=== PATIENT | female | born 1955 | race Caucasian/White ===

== ENCOUNTER 2016-08-27 10:06 | Emergency (ER) | payer BC ==
[~2016-08-27] VITALS: Ht 162.6 cm; Wt 99.0 kg
[~2016-08-27 10:06] MED LIST: ACET325T40 PO; BACTDS PO; CEPH-443 PO; LACT1CAP57 PO; LOSA1TAB19 PO; METO-429 PO
[2016-08-27 10:19] VITALS: Ht 162.6 cm; Wt 99.0 kg
--- NOTE | 2016-08-27 12:30 | RADRPT ---
PROCEDURE: Right upper extremity venous ultrasound CLINICAL INDICATION: Right arm pain and swelling, deep venous thrombosis TECHNIQUE: Warner scale, color doppler, spectral doppler ultrasound imaging of the venous system of the right upper extremity. Augmentation maneuvers were utilized. COMPARISON: 02/07/2016 FINDINGS: RIGHT: Internal jugular vein: Patent. Subclavian vein: Patent. Axillary vein: Patent. Brachial vein: Patent. Basilic vein: Patent. Cephalic vein: Patent. Radial vein: Patent. Ulnar vein: Patent. IMPRESSION: No evidence of a deep vein thrombosis involving the right upper extremity. RPTAT: AADD .Bill Roberts MD, MD Date Time Electronically viewed and signed by .Bill Roberts MD, MD on 08/27/2016 12:30 .B/
[2016-08-27] MEDS ORDERED: CLIN-73 PO (12:43)
--- NOTE | 2016-08-27 12:48 | ERD ---
ER Documentation Chief Complaint Date/Time DATE: 08/27/16 TIME: 12:44 Chief Complaint pt bib self with c/o right arm pain and swelling hx right mastectomy 2004 HPI Patient is a 60-year-old female who presents with swelling of her right upper extremity that began yesterday. She has a history of cellulitis in this arm but she also has a history of DVT in his arm. She has no chest pain or shortness of breath. She has no pain. He states he took Tylenol earlier and it resolved her pain which was minimal to begin with. She denies any trauma. Denies fever. Denies any numbness or tingling. ROS All systems reviewed and are negative except as per history of present illness. Medications Home Meds Active Scripts Clindamycin Hcl* (Clindamycin Hcl*) 300 Mg Capsule, 300 MG PO TID for 10 Days, CAP Prov:CYN JAMES PA-C 08/27/16 Cephalexin* (Keflex*) 500 Mg Capsule, 500 MG PO Q6, #40 CAP Prov:MARGIE HATFIELD MD 02/07/16 Sulfamethoxazole-Trimethoprim* (Bactrim* DS) 800-160 Mg Tab, 1 TAB PO BID for 10 Days, TAB Prov:MARGIE HATFIELD MD 02/07/16 Sulfamethoxazole-Trimethoprim* (Bactrim* DS) 1 Tab Tab, 1 TAB PO BID, #22 TAB Prov:MARCE SHERMAN MD 06/04/15 Lactobacillus Rhamnosus* (Culturelle*) 1 Cap Cap, 1 CAP PO BID, #30 Prov:MARCE SHERMAN MD 06/04/15 Acetaminophen (MAPAP) 325 Mg Tab, 650 MG PO Q6H Y for PAIN LEVEL 1-3 OR FEVER, # 1 Prov:MARCE SHERMAN MD 06/04/15 Reported Medications Metoprolol Tartrate* (Lopressor*) 50 Mg Tab, 50 MG PO DAILY, TAB 06/02/15 Losartan-Hydrochlorothiazide (Losartan-HCTZ) 50-12.5 Mg Tab, 1 TAB PO DAILY, TAB 06/02/15 Allergies Allergies: Coded Allergies: No Known Allergy (Unverified , 02/07/16) PMhx/Soc History of Surgery: Yes (R mastectomy w/ lymph node dissection/reconstruction, ) Anesthesia Reaction: No Hx Neurological Disorder: No Hx Respiratory Disorders: No Hx Cardiac Disorders: Yes (htn) Hx Psychiatric Problems: No Hx Miscellaneous Medical Probl: Yes (R arm cellulitis, breast CA, Htn) Hx Alcohol Use: No Hx Substance Use: No Hx Tobacco Use: No FmHx Family History: No diabetes Physical Exam Vitals Vital Signs Date Time Temp Pulse Resp B/P Pulse Ox O2 Delivery O2 Flow Rate FiO2 08/27/16 10:19 98.3 69 16 180/91 99 Physical Exam General: well developed, well nourished, alert, nontoxic, no distress Head: normocephalic, atraumatic Neck: Supple, nontender, no lymphadenopathy, no midline tenderness Respiratory: Clear to auscaultation bilaterally, speaks in full sentences, no use of accesory muscles or labored breathing, no rales, ronchi, or wheezing Cardiovascular: RRR, No murmurs Extremities: Right upper extremity is edematous mostly in the humeral area, sensation to light touch is intact, mild warmth to palpation, mild erythema, no induration, full range of motion in hand, wrist, elbow, and shoulders, no bony abnormalities, nontender to palpation throughout Procedures/MDM Patient is a nondiabetic 60-year-old female who presents with right upper extremity swelling. Patient's blood pressure was elevated (>120/80) but appears stable without evidence of hypertension emergency or urgency. The patient was counseled about the risks of hypertension and urged to pursue outpatient monitoring and therapy within a week with their primary care physician. Otherwise vital signs are within normal limits and she is afebrile and not tachycardic. She has no chest pain or shortness of breath. She has had cellulitis in his right upper extremity which has responded well to outpatient antibiotics but she has also had DVT in his right upper extremity and therefore I ordered ultrasound of the right upper extremity which was negative for DVT at this time. Patient was discharged with clindamycin and copies of the reports she can follow with primary care. Recommended this patient follow up with her primary care doctor within 48 hours or return to the emergency room for any worsening of symptoms. However this time I do believe there is suitable for outpatient management. I answered all their questions and they agreed with the plan and were discharged home. Departure Diagnosis: Primary Impression: Cellulitis Condition: Stable Patient Instructions: Cellulitis Additional Instructions: Call your primary care doctor TOMORROW for an appointment during the next 1-2 days.See the doctor sooner or return here if your condition worsens before your appointment time. CYN JAMES PA-C Aug 27, 2016 12:48
[2016-08-27 13:40] VITALS: BP 172/88; PULSE 77; RESP 16; TEMP 98.3
== END 2016-08-27 13:40 | disposition home or self-care (01) ==
LOC: FTE 10:06
DX: L03.113 Cellulitis of right upper limb (principal); I10 Essential (primary) hypertension; Z85.3 Personal history of malignant neoplasm of breast
CPT/HCPCS: 93971

== ENCOUNTER 2017-01-08 11:39 | Emergency (ER) | payer BC ==
[~2017-01-08] VITALS: Ht 154.9 cm; Wt 88.0 kg
[~2017-01-08 11:39] MED LIST changes: +CLIN-73 PO
[2017-01-08 11:41] VITALS: Ht 154.9 cm; Wt 88.0 kg
--- NOTE | 2017-01-08 12:38 | RADRPT ---
PROCEDURE: Right upper extremity venous duplex ultrasound. CLINICAL INDICATION: Right arm swelling and pain. TECHNIQUE: Right upper extremity venous duplex sonography was performed. COMPARISON: 08/27/2016 FINDINGS: The right internal jugular, subclavian, axillary, brachial, cephalic, basilic, antecubital, radial a nd ulnar veins showed no evidence for thrombus. These veins demonstrate normal color and Doppler wa veforms. IMPRESSION: No evidence for thrombus within the right upper extremity. RPTAT: EE .Vilma Lizama MD, Date Time Electronically viewed and signed by .Vilma Lizama MD, on 01/08/2017 12:37 .M/
[2017-01-08] MEDS ORDERED: BEN25 PO (12:46)
[2017-01-08] MEDS ORDERED: PRED20TA PO (12:46)
--- NOTE | 2017-01-08 12:52 | ERD ---
ER Documentation Chief Complaint Date/Time DATE: 01/08/17 TIME: 12:50 Chief Complaint R arm rash since yesterday. No fever. HPI Patient is a 61-year-old female who presents with a itchy rash on her right upper extremity that she has had since today. She denies any swelling of her lips or tongue. Denies any difficulty breathing. Denies any new soaps foods or irritants that she can think of. She has not taken any medications for this yet. She states that her right arm is swollen. She denies any chest pain or shortness of breath. ROS All systems reviewed and are negative except as per history of present illness. Medications Home Meds Active Scripts Prednisone* (Prednisone*) 20 Mg Tab, 40 MG PO DAILY for 5 Days, TAB Prov:[place] JAMES PA-C 01/08/17 Diphenhydramine Hcl* (Benadryl*) 25 Mg Cap, 25 MG PO Q6, #30 CAP Prov:CYN JAMES PA-C 01/08/17 Clindamycin Hcl* (Clindamycin Hcl*) 300 Mg Capsule, 300 MG PO TID for 10 Days, CAP Prov:CYN JAMES PA-C 08/27/16 Cephalexin* (Keflex*) 500 Mg Capsule, 500 MG PO Q6, #40 CAP Prov:MARGIE HATFIELD MD 02/07/16 Sulfamethoxazole-Trimethoprim* (Bactrim* DS) 800-160 Mg Tab, 1 TAB PO BID for 10 Days, TAB Prov:MARGIE HATFIELD MD 02/07/16 Sulfamethoxazole-Trimethoprim* (Bactrim* DS) 1 Tab Tab, 1 TAB PO BID, #22 TAB Prov:MARCE SHERMAN MD 06/04/15 Lactobacillus Rhamnosus* (Culturelle*) 1 Cap Cap, 1 CAP PO BID, #30 Prov:MARCE SHERMAN MD 06/04/15 Acetaminophen (MAPAP) 325 Mg Tab, 650 MG PO Q6H Y for PAIN LEVEL 1-3 OR FEVER, # 1 Prov:MARCE SHERMAN MD 06/04/15 Reported Medications Metoprolol Tartrate* (Lopressor*) 50 Mg Tab, 50 MG PO DAILY, TAB 06/02/15 Losartan-Hydrochlorothiazide (Losartan-HCTZ) 50-12.5 Mg Tab, 1 TAB PO DAILY, TAB 06/02/15 Allergies Allergies: Coded Allergies: No Known Allergy (Unverified , 02/07/16) PMhx/Soc History of Surgery: Yes (R mastectomy w/ lymph node dissection/reconstruction, ) Anesthesia Reaction: No Hx Neurological Disorder: No Hx Respiratory Disorders: No Hx Cardiac Disorders: Yes (htn) Hx Psychiatric Problems: No Hx Miscellaneous Medical Probl: Yes (R arm cellulitis, breast CA, Htn) Hx Alcohol Use: No Hx Substance Use: No Hx Tobacco Use: No Smoking Status: Never smoker FmHx Family History: No diabetes Physical Exam Vitals Vital Signs Date Time Temp Pulse Resp B/P Pulse Ox O2 Delivery O2 Flow Rate FiO2 01/08/17 11:41 98.8 87 14 131/60 97 Physical Exam Const: [] Head: Atraumatic Eyes: Normal Conjunctiva ENT: Normal External Ears, Nose and Mouth. Neck: Full range of motion..~ No meningismus. Resp: Clear to auscultation bilaterally Cardio: Regular rate and rhythm, no murmurs Abd: Soft, non tender, non distended. Normal bowel sounds Skin: Right upper extremity is swollen throughout with a macular papular hive- like rash Procedures/MDM Patient presents with a right upper extremity rash that does appear to be like allergic in nature however given how swollen her right upper extremity is I did order an ultrasound of the right upper extremity and there is no evidence of DVT. Therefore she is discharged with prednisone and Benadryl Recommended this patient follow up with her primary care doctor within 48 hours or return to the emergency room for any worsening of symptoms. However this time I do believe there is suitable for outpatient management. I answered all their questions and they agreed with the plan and were discharged home. Departure Diagnosis: Primary Impression: Rash Condition: Stable Patient Instructions: Self-Care for Skin Rashes Additional Instructions: Llame al doctor MAANA y francois corrine MOMO PARA DENTRO DE 1-2 MARCELO.Dgale a la secretaria que nosotros le instruimos hacer esta momo.Avise o llame si etienne condicin se empeora antes de la momo. Regresa aqui si peor o no mejor. CYN JAMES PA-C Jan 08, 2017 12:52
== END 2017-01-08 13:23 | disposition home or self-care (01) ==
LOC: FTE 11:39
DX: R21 Rash and other nonspecific skin eruption (principal); I10 Essential (primary) hypertension; Z85.3 Personal history of malignant neoplasm of breast
CPT/HCPCS: 93971

== ENCOUNTER 2018-01-16 18:38 | Inpatient (IN) | END 2018-01-22 10:58 | disposition home health service (06) | DRG 872 ==

== ENCOUNTER 2018-10-30 21:56 | Emergency (ER) | payer BC ==
[~2018-10-30] VITALS: Ht 157.5 cm; Wt 93.0 kg
[~2018-10-30 21:56] MED LIST changes: -ACET325T40 PO; -BACTDS PO; -CEPH-443 PO; -CLIN-73 PO; -LACT1CAP57 PO; -LOSA1TAB19 PO; +LOSA1TAB22 PO; -METO-429 PO
[2018-10-30 21:59] VITALS: Ht 157.5 cm; Wt 93.0 kg
[2018-10-31] MEDS ORDERED: DIPHTH/TET/ACEL PERTUSS (ADULT) 0.5 ML VIAL IM* ONE (02:00)
[2018-10-31] MEDS ORDERED: CIPR750T3 PO (02:59)
--- NOTE | 2018-10-31 03:05 | ERD ---
ER Documentation Chief Complaint Chief Complaint STEPPED ON NAIL, RIGHT FOOT, TODAY; HX OF LYPHMECTOMY HPI This is a 63-year-old female with history of breast cancer and cellulitis presents to the ED after stepping on a nail earlier today. Patient states she was wearing slippers when she accidentally stepped into a curved nail. Patient was able to remove the nail sustained a small puncture wound to her right lateral plantar foot. She immediately cleaned this afterwards and came here for further evaluation. She denies any fevers or chills. Denies any numbness, ti ngling or focal weakness. No other complaints. ROS All systems reviewed and are negative except as per history of present illness. Medications Home Meds Active Scripts Ciprofloxacin Hcl* (Ciprofloxacin Hcl*) 750 Mg Tablet, 750 MG PO BID, #14 TAB Prov:ABDULKADIR BENJAMIN PA-C 10/31/18 Losartan-Hydrochlorothiazide (Losartan-HCTZ) 50-12.5 Mg Tab, 1 TAB PO DAILY for 30 Days, #30 TAB 3 Refills Prov:DALLAS MARTINEZ MD 01/21/18 Allergies Allergies: Coded Allergies: vancomycin (Verified Allergy, Severe, SOB, Back pain, pounding in the ear, 01/17/18) Penicillins (Verified Allergy, Intermediate, 01/16/18) Pork/Porcine Containing Products (Verified Allergy, Unknown, 01/16/18) shrimp (Verified Allergy, Unknown, 01/16/18) PMhx/Soc History of Surgery: Yes (right mastectomy 2004) Anesthesia Reaction: No Hx Neurological Disorder: No Hx Respiratory Disorders: Yes Hx Cardiac Disorders: Yes (htn) Hx Psychiatric Problems: No Hx Miscellaneous Medical Probl: Yes (hx of breast CA) Hx Alcohol Use: No Hx Substance Use: No Hx Tobacco Use: No Physical Exam Vitals Vital Signs Date Temp Pulse Resp B/P (MAP) Pulse Ox O2 O2 Flow FiO2 Time Delivery Rate 10/30/18 96.3 69 19 188/88 99 21:59 (121) Physical Exam Const: No acute distress Head: Atraumatic Eyes: Normal Conjunctiva ENT: Normal External Ears, Nose and Mouth. Neck: Full range of motion. No meningismus. Resp: Clear to auscultation bilaterally Cardio: Regular rate and rhythm, no murmurs Skin: No petechiae or rashes Ext: + Small puncture wound to the right lateral plantar foot. No surrounding erythema. No purulent drainage. No crepitus. Mild soft tissue swelling of the right lateral ankle. Full range of motion of the right foot. Sensation and motor grossly intact. DP/PT pulses intact. Cap refill less than 2 seconds. Left lower extremity normal. Neur: Awake and alert Psych: Normal Mood and Affect Results 24 hrs Current Medications Medications Dose Sig/Nani Start Time Status Last (Trade) Ordered Route PRN Stop Time Admin Dose Reason Admin Diphtheria/ 0.5 ml ONCE ONCE 10/31/18 DC 10/31/18 Tetanus/Acell IM* 02:00 02:06 Pertussis 10/31/18 02:01 (Adacel) Procedures/MDM LABS & DIAGNOSTIC IMAGING: PROCEDURE: XR right foot 3 views. CLINICAL INDICATION: Stepped on nail with foot pain and concern for retained foreign body. TECHNIQUE: Frontal, lateral and oblique views of the right foot were performed. COMPARISON: None available. FINDINGS: Marker placed indicating the region of the lateral plantar heel. Mild diffuse bony demineralization. No evidence of acute fracture/malalignment. No joint effusion identified. Moderate plantar calcaneal enthesiophyte. Mild soft tissue edema about the ankle. No identifiable retained radiopaque foreign body. Few scattered tiny calcified venous phleboliths. IMPRESSION: 1. No evidence of acute fracture/malalignment. 2. No identifiable retained radiopaque foreign body. 3. Moderate heel spur. 4. Mild soft tissue edema about the ankle. PROCEDURES: Tetanus updated. MEDICAL DECISION MAKING: This is a 63-year-old female with history of breast cancer who presents status post stepping on a nail. Patient irrigated the wound prior to coming here. Tetanus was updated. An x-ray was obtained to rule out retained foreign body which was negative as above. Given her history of cancer, will treat prophylactically with antibiotics. Patient given Rx Cipro. I low suspicion for tenosynovitis, osteomyelitis, necrotizing fasciitis, abscess, cellulitis. She was told to follow-up in 2 days for wound recheck. Strict return precautions discussed. PRESCRIPTIONS: Cipro SPECIALIST FOLLOW UP RECOMMENDED: None Patient has been advised to follow up with primary care in 1-2 days. Blood Pressure Assessment: Patient's blood pressure was elevated (>120/80) but appears stable without evidence of hypertension emergency or urgency. The patient was counseled about the risks of hypertension and urged to pursue outpatient monitoring and therapy within a week with their primary care physician. Departure Diagnosis: Primary Impression: Puncture wound Condition: Stable Patient Instructions: Puncture Wound, Foot Referrals: [facility] YOU HAVE RECEIVED A MEDICAL SCREENING EXAM AND THE RESULTS INDICATE THAT YOU DO NOT HAVE A CONDITION THAT REQUIRES URGENT TREATMENT IN THE EMERGENCY DEPARTMENT. FURTHER EVALUATION AND TREATMENT OF YOUR CONDITION CAN WAIT UNTIL YOU ARE SEEN IN YOUR DOCTORS OFFICE WITHIN THE NEXT 1-2 DAYS. IT IS YOUR RESPONSIBILITY TO MAKE AN APPOINTMENT FOR FOLOW-UP CARE. IF YOU HAVE A PRIMARY DOCTOR --you should call your primary doctor and schedule an appointment IF YOU DO NOT HAVE A PRIMARY DOCTOR YOU CAN CALL OUR PHYSICIAN REFERRAL HOTLINE AT IF YOU CAN NOT AFFORD TO SEE A PHYSICIAN YOU CAN CHOSE FROM THE FOLLOWING [facility] [address] [facility]. [facility] [address] [email or web address] [address] [facility] [address] [facility] [address] [facility]. [facility] [address] [facility]. [facility] YOU HAVE RECEIVED A MEDICAL SCREENING EXAM AND THE RESULTS INDICATE THAT YOU DO NOT HAVE A CONDITION THAT REQUIRES URGENT TREATMENT IN THE EMERGENCY DEPARTMENT. FURTHER EVALUATION AND TREATMENT OF YOUR CONDITION CAN WAIT UNTIL YOU ARE SEEN IN YOUR DOCTORS OFFICE WITHIN THE NEXT 1-2 DAYS. IT IS YOUR RESPONSIBILITY TO MAKE AN APPOINTMENT FOR FOLOW-UP CARE. IF YOU HAVE A PRIMARY DOCTOR --you should call your primary doctor and schedule and appointment IF YOU DO NOT HAVE A PRIMARY DOCTOR YOU CAN CALL OUR PHYSICIAN REFERRAL HOTLINE AT . IF YOU CAN NOT AFFORD TO SEE A PHYSICIAN YOU CAN CHOSE FROM THE FOLLOWING [facility] INSTITUTIONS: [facility] [address] [place] [address] [facility] [address] [place] [address] [facility] + [facility] [address] [place] [address] [facility] Additional Instructions: You must follow-up with your primary care doctor or return here in 48 hours for wound recheck. Take the antibiotics as prescribed. Return here for any new or worsening symptoms. ABDULKADIR BENJAMIN PA-C Oct 31, 2018 03:05
[2018-10-31 03:35] VITALS: BP 183/81; PULSE 78; RESP 18
== END 2018-10-31 03:35 | disposition home or self-care (01) ==
LOC: FTE 21:56
DX: S91.331A Puncture wound without foreign body, right foot, initial encounter (principal); I10 Essential (primary) hypertension; W45.0XXA Nail entering through skin, initial encounter; Y92.9 Unspecified place or not applicable; Z85.3 Personal history of malignant neoplasm of breast
CPT/HCPCS: 73630; 90715; 96372